=== PATIENT | female | born 1955 | race Caucasian/White ===

== ENCOUNTER 2023-08-18 19:25 | Emergency (ER) | payer MEDICAID ==
[~2023-08-18] VITALS: Ht 154.9 cm; Wt 63.5 kg
[2023-08-18 20:08] VITALS: BP 121/75; PULSE 73; RESP 18; TEMP 97.6; O2SAT 99
[2023-08-18] MEDS: methocarbamoL 500 MG TAB PO STA (20:56)
[2023-08-18] MEDS: ACETAMINOPHEN 325 MG TAB PO ONE (20:57)
[2023-08-18] MEDS ORDERED: ACET-10509 PO (22:28)
[2023-08-18] MEDS ORDERED: LID5T TP (22:28)
[2023-08-18] MEDS ORDERED: NAPR-1704 PO (22:28)
[2023-08-18] MEDS ORDERED: METH-1681 PO (22:28)
[2023-08-18 23:05] VITALS: BP 134/64; PULSE 76; RESP 20; TEMP 98; O2SAT 99
== END 2023-08-18 23:05 | disposition home or self-care (01) ==
LOC: MED 19:25
DX: S09.90XA Unspecified injury of head, initial encounter (principal); M54.50 Low back pain, unspecified; Z79.899 Other long term (current) drug therapy; W18.30XA Fall on same level, unspecified, initial encounter; Y93.89 Activity, other specified; Y92.89 Other specified places as the place of occurrence of the external cause; Y99.8 Other external cause status
CPT/HCPCS: 70450; 72125; 72128; 72131; 99284